=== PATIENT | male | born 1990 | race Two or more races ===

== ENCOUNTER 2019-07-03 15:07 | Emergency (ER) | payer SELFPAY ==
[~2019-07-03] VITALS: Ht 172.7 cm; Wt 83.0 kg
[2019-07-03] MEDS ORDERED: diphenhydrAMINE HCL 50 MG/ML VIAL ONE (15:27)
[2019-07-03] MEDS ORDERED: OLANZAPINE 10 MG VIAL IM ONE ×2 (15:27→15:30)
[2019-07-03] MEDS ORDERED: diphenhydrAMINE HCL 50 MG/ML VIAL IM ONE (15:30)
--- NOTE | 2019-07-03 15:33 | NUR ---
[id number] and lapd[place], bizzarre behavior, admits on taking crack and xanax per ems. bs 97. Pt asleep eyes closed aroused upon painful stimuli & will go back to sleep. Pt placed on satellite project site monitor. vss. rr even & unlabored, no acute resp distress noted. Pt seen & eval'd by Dr. Fagan. will cont to monitor.
--- NOTE | 2019-07-03 18:13 | NUR ---
Patient is resting comfortably in bed with eyes closed. Easily aroused. VSS
--- NOTE | 2019-07-03 20:53 | NUR ---
Patient is resting comfortably in bed with eyes closed. Easily aroused. VSS
--- NOTE | 2019-07-03 22:20 | NUR ---
PT AWAKE, YELLING. VERBALLY AGGRESSIVE TOWARDS STAFF. MULTIPLE ATTEMPTS TO CALM PATIENT, UNSUCCESSFUL. SITTER AT BEDSIDE. WILL CONTINUE TO MONITOR
[2019-07-03] MEDS ORDERED: HALOPERIDOL LACTATE INJ 5 MG/ML VIAL ONE (22:28)
[2019-07-03] MEDS ORDERED: LORAZEPAM INJ 2 MG/ML VIAL ONE (22:28)
[2019-07-03] MEDS ORDERED: HALOPERIDOL LACTATE INJ 5 MG/ML VIAL IM ONE (22:30)
[2019-07-03] MEDS ORDERED: LORAZEPAM INJ 2 MG/ML VIAL IM ONE (22:30)
[2019-07-03 22:33] LABS: BASOPHILS % (AUTO) 0.4 % (0.0-2.0); HEMATOCRIT 44 % (39-51); HEMOGLOBIN 14.2 g/dL (13.5-17.5); LYMPHOCYTES # (AUTO) 3.6 /CMM (0.8-4.8); LYMPHOCYTES % (AUTO) 56.4 % (20.0-44.0); MEAN CORPUSCULAR HGB CONC 33 g/dl (31.0-36.0); MEAN CORPUSCULAR VOLUME 90 fL (80-96); MONOCYTES # (AUTO) 0.7 /CMM (0.1-1.30); MONOCYTES % (AUTO) 10.9 % (2.0-12.0); NEUTROPHILS % (AUTO) 30.3 % (43.0-81.0); PLATELET COUNT (AUTO) 445 /CMM (150-450); RED BLOOD CELL COUNT(AUTO) 4.82 MIL/uL (4.5-6.0); WHITE BLOOD COUNT (AUTO) 6.4 K/uL (4.3-11.0)
[2019-07-03 22:35] LABS: APPEARANCE,URINE Clear (CLEAR); BILIRUBIN,URINE SMALL (NEGATIVE); BLOOD, URINE Negative Ery/uL (NEGATIVE); COLOR,URINE Yellow (YELLOW); KETONES,URINE Trace (NEGATIVE); LEUKOCYTE ESTERASE ,URINE Negative (NEGATIVE); NITRITE, URINE Negative (NEGATIVE); PROTEIN,URINE Trace mg/dl (NEGATIVE); UGLUCOSE Negative (NEGATIVE)
[2019-07-03 22:46] LABS: BACTERIA,URINE None seen /HPF (None Seen); RBC,URINE 0-2 /HPF (0-2); SQUAMOUS EPITHELIAL CELL,UR Few /HPF (None Seen); WBC,URINE 0-2 /HPF (0-3)
[2019-07-03 22:59] LABS: ALANINE AMINOTRANSFERASE 22 U/L (12-78); ALBUMIN 3.7 g/dL (3.4-5.0); ALCOHOL, BLOOD < 3 mg/dL (0-0); ALKALINE PHOSPHATASE 67 U/L (46-116); ASPARTATE AMINOTRANSFERASE 19 U/L (15-37); BILIRUBIN,DIRECT 0.1 mg/dL (0.0-0.2); BILIRUBIN,TOTAL 0.3 mg/dL (0.2-1.0); CALCIUM, SERUM 8.7 mg/dL (8.5-10.1); CARBON DIOXIDE 30 mmol/L (21-32); CHLORIDE 108 mmol/L (98-107); CREATININE 1.1 mg/dL (0.6-1.3); GLUCOSE 92 mg/dL (74-106); POTASSIUM 3.7 mmol/L (3.5-5.1); SODIUM SERUM 150 mmol/L (136-145); TOTAL PROTEIN, SERUM 7.4 g/dL (6.4-8.2); UREA NITROGEN, BLOOD 9 mg/dL (7-18)
[2019-07-03 23:00] LABS: ACETAMINOPHEN 0 ug/ml (10-30); SALICYLATE 2.7 mg/dL (2.8-20.0)
--- NOTE | 2019-07-04 00:43 | NUR ---
Patient is resting comfortably in bed with eyes closed. Easily aroused. VSS
--- NOTE | 2019-07-04 01:33 | NUR ---
PT WAKES UP INTERMITTENTLY, YELLING INCOHERENTLY. SITTER AT BEDSIDE TO CALM DOWN PATIENT. WILL CONTINUE TO MONITOR
--- NOTE | 2019-07-04 03:54 | NUR ---
Patient is resting comfortably in bed with eyes closed. Easily aroused. VSS
--- NOTE | 2019-07-04 05:20 | NUR ---
PT AWAKE. [id number]. AMBULATORY WITH STEADY GAIT
--- NOTE | 2019-07-04 05:34 | NUR ---
Patient discharged to home in stable condition. Written and verbal after care instructions given. Patient verbalizes understanding of instruction.Pt ambulatory with a steady gait. Pt denies being homeless
[2019-07-04 05:35] VITALS: BP 113/72
== END 2019-07-04 05:35 | disposition home or self-care (01) ==
LOC: ER 15:13
DX: F19.10 Other psychoactive substance abuse, uncomplicated (principal); R45.1 Restlessness and agitation
CPT/HCPCS: 36415; 80048; 80076; 80305; 80307; 80329; 81001; 85025; 96372 ×4; 99285; G0480; J1200; J1630; J2060; J3490; 81000-TC